=== PATIENT | male | born 1950 | race Caucasian/White ===

== ENCOUNTER → 2022-08-01 | Outpatient (CLI) | payer MEDICARE ==
--- NOTE | 2022-08-01 09:42 | US ---
EXAMINATION TYPE: US duplex aorta DATE OF EXAM: 08/01/2022 COMPARISON: NONE CLINICAL HISTORY: Z13.6 ENCOUNTER FOR SCREENING FOR CARDIOVASCULAR D. Smoker. No HTN. Unknown famil y history. TECHNIQUE: Multiple sonographic images of the abdominal aorta are obtained. FINDINGS: EXAM MEASUREMENTS: Abdominal Aorta: Proximal: 2.3 x 2.1 cm Mid: Obscured by bowel gas Distal: 1.9 x 2.1 cm Bifurcation: Right- 0.9 x 1.2 cm Left- 1.1 x 1.2 cm Distal aneurysm = 2.5 x 3.1 x 3.3 cm EAP SPECIALIST NOTES: Very limited due to bowel gas and patient unable to tolerate probe pressure IMPRESSION: Limited examination with nonvisualization of the mid abdominal aorta secondary to overlying bowel gas . There is a distal abdominal aortic aneurysm measuring up to 3.3 cm.
== END | disposition home or self-care (01) ==
LOC: RADUSWWP 08:39
PROVIDERS: ATTEND Family Medicine
DX: Z13.6 Encounter for screening for cardiovascular disorders (principal); I71.40 Abdominal aortic aneurysm, without rupture, unspecified
CPT/HCPCS: 93979

== ENCOUNTER → 2022-09-01 | Outpatient (CLI) | payer MEDICARE ==
--- NOTE | 2022-09-01 11:38 | CA ---
Transthoracic Echo Report Name: Jerry Reid Age: 71 Gender: M : 1950 Exam Date: 09/01/2022 09:29 Exam Location: [facility] Ht (in): 64 Wt (lb): 170 Ordering Physician: Adam Culver MD Attending/Referring Phys: Adam Culver MD Office Messenger Helper Dora Sifuentes [facility] Procedure CPT: Indications: I48.91 a fib Cardiac Hx: Technical Quality: Fair Contrast 1: Total Dose (mL): Contrast 2: Total Dose (mL): MEASUREMENTS (Male / Female) Normal Values 2D ECHO LV Diastolic Diameter PLAX 4.0 cm 4.2 - 5.9 / 3.9 - 5.3 cm LV Systolic Diameter PLAX 2.4 cm IVS Diastolic Thickness 0.9 cm 0.6 - 1.0 / 0.6 - 0.9 cm LVPW Diastolic Thickness 1.0 cm 0.6 - 1.0 / 0.6 - 0.9 cm LV Relative Wall Thickness 0.5 RV Internal Dim ED PLAX 3.0 cm LA Volume 52.6 cm??? 18 - 58 / 22 - 52 cm??? M-MODE Aortic Root Diameter MM 3.3 cm LA Systolic Diameter MM 3.7 cm LA Ao Ratio MM 1.1 AV Cusp Separation MM 1.2 cm DOPPLER AV Peak Velocity 96.5 cm/s AV Peak Gradient 3.7 mmHg LVOT Peak Velocity 76.6 cm/s LVOT Peak Gradient 2.3 mmHg MV Area PHT 4.1 cm??? Mitral E Point Velocity 95.7 cm/s Mitral A Point Velocity 0.1 cm/s Mitral E to A Ratio 1043.5 MV Deceleration Time 184.7 ms TR Peak Velocity 210.4 cm/s TR Peak Gradient 17.7 mmHg Right Ventricular Systolic Press 22.7 mmHg FINDINGS Left Ventricle Normal Left ventricular size, wall thickness, systolic function with no obvious regional wall motion abnormalities. Left ventricular ejection fraction is estimated at 55%. Right Ventricle Normal right ventricular size and function. Right ventricular systolic pressure within normal limits. Right Atrium Normal right atrial size. Left Atrium Normal left atrial size. Mitral Valve Structurally normal mitral valve. Mild mitral annular calcification. Mild mitral regurgitation. Aortic Valve Trileaflet aortic valve. No aortic valve stenosis or regurgitation. Tricuspid Valve Structurally normal tricuspid valve. Mild tricuspid regurgitation. Pulmonic Valve Structurally normal pulmonic valve. Pericardium No pericardial effusion. Aorta Normal size aortic root and proximal ascending aorta. CONCLUSIONS Normal LV systolic function Mild mitral regurgitation Mild tricuspid regurgitation Previewed by: Dr. Sim Becker MD (Electronically Signed) Final Date: 01 September 2022 11:38
== END | disposition home or self-care (01) ==
LOC: RADECHMAIN 08:18
PROVIDERS: ATTEND Family Medicine
DX: I08.1 Rheumatic disorders of both mitral and tricuspid valves (principal); I48.91 Unspecified atrial fibrillation
CPT/HCPCS: 93306

== ENCOUNTER → 2023-03-07 | Outpatient (CLI) | payer MEDICARE ==
--- NOTE | 2023-03-07 08:05 | US ---
EXAMINATION TYPE: US duplex aorta DATE OF EXAM: 03/07/2023 COMPARISON: US 2021 CLINICAL INDICATION: Male, 72 years old with history of I71.40 ABD AORTIC ANEURYSM; TECHNIQUE: Multiple sonographic images of the abdominal aorta are obtained. FINDINGS: EXAM MEASUREMENTS: Abdominal Aorta: Proximal: obscured by overlying midline bowel gas Mid: 2.3 x 2.4cm Distal: 2.8 x 3.9cm Bifurcation: obscured by overlying midline bowel gas Distal AAA measuring 2.8 x 3.9cm with a length of 3.3 cm IMPRESSION: Distal abdominal aortic aneurysm measuring up to 3.9 cm. Previously measured up to 3.3 cm.
== END | disposition home or self-care (01) ==
LOC: RADUSWWP 06:38
PROVIDERS: ATTEND Family Medicine
DX: I71.40 Abdominal aortic aneurysm, without rupture, unspecified (principal)
CPT/HCPCS: 93979

== ENCOUNTER → 2024-03-12 | Outpatient (CLI) | payer MEDICARE ==
--- NOTE | 2024-04-08 13:14 | US ---
Patient: Jerry Reid Ordering Physician: Unknown, Unknown ID: [id number] Phone, Pager: Phone: N/A P ager: N/A : 1950 Age/Gender: 73Y, M Primary Location: N/A Procedure: US duplex aorta Study Da te: 03/12/2024 8:53:00 AM EXAMINATION TYPE: US duplex aorta DATE OF EXAM: 03/29/2024 COMPARISON: NONE CLINICAL INDICATION: Follow-up for aortic aneurysm TECHNIQUE: Multiple sonographic images of the abdominal aorta are obtained. FINDINGS: EXAM MEASUREMENTS: Abdominal Aorta: Distal abdominal aorta aneurysmal dilation up to 2.6 cm. The remainder of the aorta is within normal limits for size. IMPRESSION: there is a 2.5 x 2.5 cm focal dilation at the distal aorta (EW) previously this is thought to be 3.[address] angiogram for complete evaluation of the aorta for better measurements.
== END | disposition home or self-care (01) ==
LOC: RADUSWWP 12:00
PROVIDERS: ATTEND Family Medicine
DX: I71.40 Abdominal aortic aneurysm, without rupture, unspecified (principal)
CPT/HCPCS: 93979

== ENCOUNTER → 2024-05-13 | Outpatient (CLI) | payer MEDICARE ==
[2024-05-13 10:52] LABS: African American GFR (CKD) 69 (>60 ml/min/1.73 sqM); Blood Urea Nitrogen 26 mg/dL (9-20); Non-African American GFR(CKD) 60 (>60 ml/min/1.73 sqM)
--- NOTE | 2024-05-13 12:34 | CT ---
INDICATION: Patient age:Male; 73 years old; Reason for study: I71.40 AAA; PHH. COMPARISON: Aortic ultrasound 08/01/2022, 03/07/2023 TECHNIQUE: Multiple thin slice sub-millimeter images were obtained through the abdomen before and aft er administration of contrast. Patient was given Isovue 370, 80 cc intravenously. 3-D reconstructed images and maximum intensity projection images were obtained of the abdomen. One or more CT dose reduction strategies were utilized during this examination. DLP administered was 406.1 mGycm. FINDINGS: CTA Abdomen and pelvis: Atherosclerotic plaquing is identified within the abdominal aorta. No evidenc e of intramural hematoma or dissection. Infrarenal fusiform abdominal aortic aneurysm measuring 3.2 x 2.8 cm. Tortuosity of the abdominal aorta. The origins of the superior mesenteric artery, renal don leif, inferior mesenteric artery, and celiac axis are patent. Atherosclerotic plaquing with minimal mural thrombus formation is identified in the common iliac arteries. Aneurysmal dilatation of the rig ht common iliac artery measuring up to 1.8 cm. Aneurysm dilatation of the left common iliac artery me asuring up to 1.9 cm. A single renal artery is noted bilaterally. VISCERA ABDOMEN: Liver: Unremarkable. Gallbladder and Bile ducts: Unremarkable. Pancreas: Unremarkable. Spleen: Unremarkable. Adrenal glands: Unremarkable. Kidneys and Ureters: No hydronephrosis or renal calculus. Bilateral renal cysts largest in the right kidney measuring 3.7 cm the largest within the left kidney measuring 2.9 cm. Stomach and Bowel: No evidence of bowel obstruction or bowel wall thickening. Peritoneum: No evidence of pneumoperitoneum, free fluid, or adenopathy. Vasculature: Unremarkable. No aortic aneurysm. Musculoskeletal: Remote appearing anterior wedge compression deformity of the L1 vertebral body with approximately 50% height loss and no retropulsion. Mild multilevel degenerative disc disease.. LOWER CHEST: Left lower lobe 5 mm solid pulmonary nodule (series 5, image 15). IMPRESSION: 1. Infrarenal fusiform abdominal aortic aneurysm measuring up to 3.2 cm. No evidence for dissection or intracranial hematoma. 2. Bilateral common iliac artery aneurysms as described above. 3. Remote appearing anterior wedge compression deformity of the L1 vertebral body with approximately 50% height loss and no retropulsion. Correlate with point tenderness. 4. Left lower lobe 5 mm pulmonary nodule. In a lower is patient, no follow up is recommended. In a hi gh-risk patient consider optional CT chest in 12 months. [facility], , 05/13/2024 12:32 PM
== END | disposition home or self-care (01) ==
LOC: RADCTMAIN 10:14
PROVIDERS: ATTEND Family Medicine
DX: I71.40 Abdominal aortic aneurysm, without rupture, unspecified
CPT/HCPCS: 36415; 74175; 82565; 84520